=== PATIENT | male | born 1975 | race Caucasian/White ===

== ENCOUNTER 2018-06-19 06:07 | Emergency (ER) | payer OTHER ==
[~2018-06-19] VITALS: Ht 182.9 cm; Wt 102.8 kg
[2018-06-19 06:11] VITALS: TEMP 36.7; Ht 182.9 cm; Wt 102.8 kg
--- NOTE | 2018-06-19 07:02 | EMERGENCY ROOM VISIT NOTE ---
History Report prepared by Kamran: Kamari Snyder Under the Supervision of: Dr. Otf Guadalupe D.O. First contact with patient: 06:31 Chief Complaint: BITE Stated Complaint: RED RENA ON BACK, FATIGUE History of Present Illness The patient is a 43 year old male who presents to the Emergency Room with concerns over a worsening rash over his back that he first noticed on April 29 , 21 days ago. 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 He notes that about 1 month ago, a couple of weeks before the rash on the back started he did have a tic bite him in his right thigh. He continues to mention that this area did develop a Bullseye rash over this area. The rash across his back has spread significantly over the past 21 days. It is itchy and he notes that it "lopez" when he itches it. Source of History: patient Onset: 21 days ago Position: back Quality: other (itching, burning) Timing: worsening Associated Symptoms: + rash Review of Systems See HPI for pertinent positives & negatives. A total of 10 systems reviewed and were otherwise negative. Past Medical & Surgical No significant medical history stated. Family History Diabetes mellitus Social History Smoking Status: Former Smoker Marital Status: Housing Status: lives with significant other Occupation Status: employed Current/Historical Medications Scheduled Doxycycline (Monohydrate) (Monodox), 1 CAP PO BID Allergies Coded Allergies: No Known Allergies (Unverified , 06/19/18) Physical Exam Vital Signs Date Time Temp Pulse Resp B/P (MAP) Pulse Ox O2 Delivery O2 Flow Rate FiO2 06/19/18 07:09 53 18 120/88 98 06/19/18 06:34 63 18 157/100 98 Room Air 06/19/18 06:11 36.7 65 18 148/83 99 Room Air Physical Exam CONSTITUTIONAL/VITAL SIGNS: Reviewed / noted above. GENERAL: Non-toxic in appearance. INTEGUMENTARY: Warm, dry, and [place]. HEAD: Normocephalic. EYES: without scleral icterus or trauma. ENT/OROPHARYNX: clear and moist. LYMPHADENOPATHY/NECK: Is supple without lymphadenopathy or meningismus. RESPIRATORY: Lungs clear and equal. CARDIOVASCULAR: Regular rate and rhythm. GI/ABDOMEN: Soft and nontender. No organomegaly or pulsatile mass. No rebound or guarding. Normal bowel sounds. EXTREMITIES: Warm and well perfused. BACK: No CVA tenderness. NEUROLOGICAL: Intact without focal deficits. PSYCHIATRIC: normal affect. MUSCULOSKELETAL: Normally developed with good muscle tone. SKIN: There is a very faint macular erythematous rash to the left scapular area. Medical Decision & Procedures Laboratory Results Test 06/19/18 06:43 Lyme Disease IgG Antibody POS (NEG) Laboratory results as stated above per my review. ED Course 0633: Previous medical records were reviewed. The patient was evaluated in room B2. A complete history and physical examination was performed. 0643: After discussion and examination of the patient I discussed the results and findings with him. He verbalized agreement of the treatment plan. The patient was discharged home. Medical Decision Prior records/ancillary studies reviewed. Triage Nursing notes reviewed. Differential diagnosis: Etiologies such as contact dermatitis, viral exanthem, urticaria, allergic reaction, Holguin-Krish syndrome, toxic epidermal necrolysis, erythema multiforme, cellulitis, scabies, HSV, varicella, zoster, eczema, staph scalded skin syndrome, fungal infection, as well as others were entertained. This is a 43-year-old male who presents to the ED with a chief complaint of a rash on his back. The patient states that he has had numerous tick exposures in the past months. He believes he was bitten about a month ago in the right groin. The patient states that he noticed an itchy rash that he initially thought was ringworm on his left back on April 29. That rash has become larger and more faint but it is itchy and burning in sensation. He also reported some fatigue and joint pain. He was concerned about Lyme disease. He did show me a picture of the original rash. It did appear similar to that which would be suggestive of ringworm. His current rash is very faint and difficult to visualize. It is not well demarcated. It is macular and encompasses the area of the left scapula region. The patient does not have any other rashes. He denies any joint swelling. Denies any other significant symptoms. He has not had fevers or headaches. The patient will try clotrimazole cream on the rash. Lyme test was positive. The patient was given a prescription for doxycycline for 21 days. He was called with results of the test. He had been discharged prior to the results. The prescription was sent to [facility] in [place]. He will pick that up later today and start the medication. He will return for any concerns. Medication Reconcilliation Current Medication List: was personally reviewed by me Blood Pressure Screening Patient's blood pressure: Elevated blood pressure Blood pressure disposition: Elevated BP felt to be situational Impression Primary Impression: Lyme disease Additional Impression: Rash Scribe Attestation The scribe's documentation has been prepared under my direction and personally reviewed by me in its entirety. I confirm that the note above accurately reflects all work, treatment, procedures, and medical decision making performed by me. Departure Information Dispostion Home / Self-Care Prescriptions Doxycycline (Monohydrate) (MONODOX) 100 Mg Cap 1 CAP PO BID for 21 Days, #42 CAP Prov: Otf Guadalupe D.O. 06/19/18 Referrals No Doctor, Assigned (PCP) Patient Instructions My [facility] Additional Instructions If you are not contacted by 10am call [phone] for the lyme test results. Ask for the charge nurse. Try clotrimazole cream on the rash. Use this twice a day to the affected area for 4 weeks. See your doctor if symptoms persist. Problem Qualifiers
[2018-06-19 07:09] VITALS: BP 120/88; PULSE 53; O2SAT 98
[2018-06-19] MEDS ORDERED: DOXY100C41 PO (09:14)
--- NOTE | 2018-06-23 17:32 | Pharmacy Progress Note ---
ED Pharmacist Culture FollowUp Date of Service: Jun 23, 2018. Patient's Lyme's disease western blot positive for IgG and IgM, indicating recent infection. Patient was prescribed doxycycline 100 mg BID x 21 days which is appropriate. Called and spoke with patient and informed of confirmed positive result, he should continue taking the antibiotic and can follow up with outpatient provider. Patient expressed understanding and did not have any questions.
== END 2018-06-19 07:10 | disposition home or self-care (01) ==
LOC: C.EDB 06:07
DX: R21 Rash and other nonspecific skin eruption (principal); A69.20 Lyme disease, unspecified; Z87.891 Personal history of nicotine dependence